=== PATIENT | female | born 1960 | race Two or more races ===

== ENCOUNTER 2020-03-29 08:52 | Inpatient (IN) | payer OTHER ==
[~2020-03-29] VITALS: Ht 157.5 cm; Wt 80.7 kg
[2020-03-29] MEDS ORDERED: ANASTROZOLE1 MG PO (09:21)
[2020-03-29] MEDS ORDERED: OMEPRAZOLE20 MG PO (09:21)
[2020-03-29] MEDS ORDERED: AMOXICILLIN500 MG PO (09:22)
[2020-03-29] MEDS ORDERED: CLARITHROMYCIN500 MG PO (09:22)
--- NOTE | 2020-03-29 09:22 | NUR ---
SE RECIBE PACIENTE ALERTA, ORIENTADA X 3 ESFERAS REFIERE TENER FUYERTE DOLOR ABDOMINAL PTE HX. CANCER DE COLON Y DE SENO SE UBICA EN AREA DE OBSERVACION.
--- NOTE | 2020-03-29 11:04 | NUR ---
PTE ES EVALUADA POR DRA. RICARDO QUIEN ORDENA TRATAMIENTO. RNDemetri Krishnamurthy. CANO EDUCA A PTE SOBRE ORDENES MEDICAS Y REFIERE COMPRENDER. CANALIZA Y COLECTAN MUESTRAS DE LABORATORIO BAJO MEDIDAS ASEPTICAS Y ADMINISTRA MEDICAMENTOS KARINA ORDEN MEDICA LOS CUALES PTE TOLERA Y NO PRESENTA REACCION ADVERSA AL MOMENTO. SE MANTIENE A PTE CON IV FLUIDS 0.9% NSS AT 125 ML/HR.
[2020-04-06] MEDS ORDERED: CARAFATE1 GM PO (16:22)
[2020-04-06] MEDS ORDERED: PROTONIX40 MG PO (16:22)
[2020-04-06] MEDS ORDERED: HYOSCYAMINE0.125 M1 SL (16:22)
[2020-04-06] MEDS ORDERED: ULTRACET PO (16:23)
[2020-04-06] MEDS ORDERED: INTESTINEX680 M1 PO (16:23)
== END 2020-04-06 17:44 | disposition home or self-care (01) | DRG 330 ==
LOC: ER 08:52 → SURH 17:08
PROVIDERS: ADMIT Surgery; ATTEND Surgery
PROC: 07BC4ZX Excision of Pelvis Lymphatic, Percutaneous Endoscopic Approach, Diagnostic (ICD-10-PCS; 2020-04-01)
PROC: 0DTL4ZZ Resection of Transverse Colon, Percutaneous Endoscopic Approach (ICD-10-PCS; principal; 2020-04-01 16:00)
DX: C18.4 Malignant neoplasm of transverse colon (principal); K56.690 Other partial intestinal obstruction; N17.8 Other acute kidney failure; E86.0 Dehydration; I11.9 Hypertensive heart disease without heart failure; Z20.828 Contact with and (suspected) exposure to other viral communicable diseases